=== PATIENT | female | born 1955 | race Caucasian/White ===

== ENCOUNTER 2021-05-19 07:52 | Outpatient (CLI) | payer BC, SELFPAY ==
[2021-05-19] VITALS (7 sets, daily range): BP systolic 161–168; BP diastolic 80–90; PULSE 68–87; RESP 16; TEMP 36.6–36.8; O2SAT 94–95
== END 2021-05-19 09:20 | disposition home or self-care (01) ==
LOC: INF 07:53
PROVIDERS: PCP Family Medicine; Visit Provider Family Medicine
DX: U07.1 COVID-19 (principal); Z23 Encounter for immunization
CPT/HCPCS: 96365

== ENCOUNTER 2022-05-20 13:00 | Outpatient (RCR) | payer BC, SELFPAY | END 2022-05-20 13:05 | disposition home or self-care (01) | LOC: PT 13:00 | PROVIDERS: PCP Nurse Practitioner Family; Visit Provider Nurse Practitioner Family | DX: M79.605 Pain in left leg (principal); R20.0 Anesthesia of skin | CPT/HCPCS: 97110; 97163; 97530 ==

== ENCOUNTER 2023-07-12 13:39 | Emergency (ER) | payer MEDICARE, SELFPAY ==
[2023-07-12 14:40] VITALS: BP 133/72; PULSE 83; RESP 20; TEMP 36.8; O2SAT 96; BMI 38.4
--- NOTE | 2023-07-12 14:58 | ED_ITS ---
Discharge Plan Disposition Patient Disposition: Home, Self-Care Condition: Good Prescriptions Prescriptions: New triamcinolone acetonide 0.025 % ointment 1 applic topical TID Qty: 30 0RF Rx Instructions: apply to rash on right upper arm as directed No Action lisinopril 10 mg tablet 10 mg PO DAILY Patient Comments: TAKE 1 TABLET BY MOUTH ONCE DAILY Referrals Follow up/Referrals: Anirudh Stoner MD [Primary Care Provider] - See instructions Activity Restrictions/Add. Instructions Additional Instructions/Restrictions: Look ar9ud see what may be causing the rash Use topical steriods as prescribed Over the counter Benadryl may help with itching Follow up with your Family Doctor if no improvement or any worsening of symptoms Clinical Impressions Clinical Impression: Contact dermatitis Qualifiers: Contact dermatitis type: unspecified Contact dermatitis trigger: unspecified trigger Qualified Code(s): L25.9 - Unspecified contact dermatitis, unspecified cause Instructions Patient Instructions: Contact Dermatitis, DI for Contact Dermatitis, Triamcinolone Topical Discharge ED Provider: Cheyanne Orona [facility] General Stated complaint: itchy rash on both arms Mode of Arrival: Ambulatory Source of Information: Patient Limitations: No Limitations Time Seen by Provider: 07/12/23 14:58 Description of Symptoms (Recalled from Triage Doc. by RN): PATIENT C/O ITCHY RASH TO RIGHT UPPER ARM HEENT Symptoms (Recalled from RN notes): No Resp Symptoms (Recalled from RN notes): No Skin Symptoms (Recalled from RN notes): Yes MS Symptoms (Recalled from RN notes): No Functional Status (Recalled from RN notes): WNL History of Present Illness Provider Complaint: Patient states that she thinks she may been having a rash due to new detergent States she initially had rash on her left forearm and she used calamine lotion and it went away now she is having a patchy like itchy rash on her right upper arm so she came in to get it checked States that she is a prediabetic Related Data Home Medications Medication Instructions Recorded Confirmed lisinopril 10 mg tablet 10 mg PO DAILY 08/06/20 07/12/23 Previous Rx's Medication Instructions Recorded triamcinolone acetonide 0.025 % 1 applic topical TID #30 grams 07/12/23 topical ointment Allergies Allergy/AdvReac Type Severity Reaction Status Date / Time No Known Allergies Allergy Verified 08/28/22 14:26 Worker's Comp Is this a Worker's Comp case?: No [facility] Disclaimer: The information contained in this section may have been updated after the patient was seen, as this information can be updated by other users. Social History Smoking Status: Never smoker alcohol intake: never substance use type: denies use current occupational status: employed Travel in the last 8 weeks: None household members: family housing: house ROS Obtained: Yes All systems reviewed & no additional complaints except as documented and Yes Systems reviewed as appropriate & no additional complaints except as documented Constitutional Constitutional: Reports system reviewed and no additional complaints, except as documented and Reports as per HPI ENT Ears, Nose, Mouth, and Throat: Reports system reviewed and no additional complaints, except as documented and Reports as per HPI Cardiovascular Cardiovascular: Reports system reviewed and no additional complaints, except as documented and Reports as per HPI Respiratory Respiratory: Reports system reviewed and no additional complaints, except as documented and Reports as per HPI Gastrointestinal Gastrointestingal: Reports system reviewed and no additional complaints, except as documented and as per HPI Integumentary/Breasts Skin/Breast: Reports system reviewed and no additional complaints, except as documented, Reports as per HPI, Reports pruritus and Reports rash Physical Exam General General appearance: alert and in no apparent distress ENT ENT exam: Present mucous membranes moist Respiratory Respiratory exam: Present normal lung sounds bilaterally; Absent respiratory distress or wheezes Cardiovascular Cardiovascular exam: Present regular rate, normal rhythm and normal heart sounds Neurological Exam Neurological exam: Present alert, oriented X3 and normal gait Skin Skin exam: Present rash (red patchy itchy rash on her right upper arm ) Medical Decision Making Lexx Inquiry Pt receiving controlled substance: No Lexx was queried for this patient: No Vital Signs: 07/12/23 14:40 Temperature 98.2 F Temperature Source Oral Pulse Rate [Left Brachial] 83 Respiratory Rate 20 Blood Pressure [Left Arm] 133/72 Blood Pressure Mean [Left Arm] 92 Blood Pressure Source [Left Arm] Automatic Cuff Blood Pressure Position [Left Arm] Sitting 02 Sat by Pulse Oximetry 96 Oxygen Delivery Method Room Air Medical Decision Narrative: discussed with patient about oral steriods and she said she is a pre diabetic and just got her her blood sugar under control will try topical steriods and follow up if no improvement
[2023-07-12 15:05] VITALS: BP 133/72; PULSE 83; RESP 20; TEMP 36.8; O2SAT 96
== END 2023-07-12 15:08 | disposition home or self-care (01) ==
PROVIDERS: Emergency Provider Nurse Practitioner; PCP Family Medicine
DX: L25.9 Unspecified contact dermatitis, unspecified cause (principal)
CPT/HCPCS: 99204; 99212; G0463